=== PATIENT | male | born 1945 | race Caucasian/White ===

== ENCOUNTER 2018-04-19 07:00 | Day surgery (SDC) | payer MEDICARE ==
[~2018-04-19] VITALS: Ht 170.2 cm; Wt 72.6 kg
[2018-04-19] MEDS ORDERED: MEPERIDINE HCL/PF 100 MG/ML AMP ONE (07:42)
[2018-04-19] MEDS ORDERED: SIMETHICONE 40 MG/0.6 ML ML ONE (07:42)
[2018-04-19] MEDS: MIDAZOLAM HCL 5 MG/5 ML VIAL ONE ×2 (09:02→09:04)
[2018-04-19] MEDS ORDERED: GLYCOPYRROLATE 0.2 MG/ML VIAL ONE (09:10)
[2018-04-19 11:03] VITALS: BP_SYST 118
== END 2018-04-19 10:35 | disposition home or self-care (01) ==
LOC: SMU 07:00 → SDS 07:00
PROVIDERS: ATTEND Colon & Rectal Surgery
DX: K62.1 Rectal polyp (principal); K62.89 Other specified diseases of anus and rectum; N40.0 Benign prostatic hyperplasia without lower urinary tract symptoms; I12.9 Hypertensive chronic kidney disease with stage 1 through stage 4 chronic kidney disease, or unspecified chronic kidney disease; N18.3 Chronic kidney disease, stage 3 (moderate); E78.00 Pure hypercholesterolemia, unspecified; K57.30 Diverticulosis of large intestine without perforation or abscess without bleeding; Z88.8 Allergy status to other drugs, medicaments and biological substances; Z86.010 Personal history of colon polyps; Z80.8 Family history of malignant neoplasm of other organs or systems; Z87.891 Personal history of nicotine dependence; Z79.899 Other long term (current) drug therapy; Z79.82 Long term (current) use of aspirin
CPT/HCPCS: 45380; 88305; J2175; J2250; J3490